=== PATIENT | female | born 1995 | race Caucasian/White ===

== ENCOUNTER 2018-09-10 11:08 | Emergency (ER) | payer OTHER ==
[~2018-09-10] VITALS: Ht 162.6 cm; Wt 68.0 kg
[2018-09-10] MEDS ORDERED: PREDNISONE 20 M20 M1 PO (11:33)
[2018-09-10 11:39] VITALS: BP 119/85
== END 2018-09-10 11:39 | disposition home or self-care (01) ==
LOC: M.ERS 11:08
DX: L30.9 Dermatitis, unspecified (principal); F32.9 Major depressive disorder, single episode, unspecified; F41.9 Anxiety disorder, unspecified; J45.909 Unspecified asthma, uncomplicated; Z88.1 Allergy status to other antibiotic agents; Z88.5 Allergy status to narcotic agent

== ENCOUNTER 2019-06-26 14:24 | Emergency (ER) | payer OTHER, MEDICAID ==
[~2019-06-26] VITALS: Ht 162.6 cm; Wt 65.8 kg
[~2019-06-26 14:24] MED LIST: PREDNISONE 20 M20 M1 PO
[2019-06-26] MEDS ORDERED: TRINATE TABLET1 EACH PO (15:09)
[2019-06-26 15:18] VITALS: BP 130/75
== END 2019-06-26 15:19 | disposition home or self-care (01) ==
LOC: M.ERS 14:24
DX: Z32.01 Encounter for pregnancy test, result positive (principal); F32.9 Major depressive disorder, single episode, unspecified; J45.909 Unspecified asthma, uncomplicated; F41.9 Anxiety disorder, unspecified; Z88.1 Allergy status to other antibiotic agents; Z88.5 Allergy status to narcotic agent

== ENCOUNTER 2020-05-25 20:55 | Emergency (ER) | payer OTHER, MEDICAID ==
[~2020-05-25] VITALS: Ht 162.6 cm; Wt 65.8 kg
[~2020-05-25 20:55] MED LIST changes: +TRINATE TABLET1 EACH PO
[2020-05-25] MEDS ORDERED: ZOLOFT100 MG PO (21:13)
[2020-05-25] MEDS ORDERED: HYDROCODON-ACE1 EAC8 PO (21:35)
[2020-05-25] MEDS ORDERED: AMOXICILLIN875 MG PO (21:35)
[2020-05-25 21:46] VITALS: BP 111/74
== END 2020-05-25 21:47 | disposition home or self-care (01) ==
LOC: M.ERS 20:55
DX: K02.9 Dental caries, unspecified (principal); J45.909 Unspecified asthma, uncomplicated; F32.9 Major depressive disorder, single episode, unspecified; F41.9 Anxiety disorder, unspecified; Z98.890 Other specified postprocedural states; Z88.1 Allergy status to other antibiotic agents; Z88.6 Allergy status to analgesic agent

== ENCOUNTER 2020-07-13 15:58 | Emergency (ER) | payer OTHER, MEDICAID ==
[~2020-07-13] VITALS: Ht 162.6 cm; Wt 63.5 kg
[~2020-07-13 15:58] MED LIST changes: +AMOXICILLIN875 MG PO; +HYDROCODON-ACE1 EAC8 PO; +ZOLOFT100 MG PO
[2020-07-13] MEDS ORDERED: AMOXICILLIN 50500 MG PO (16:42)
[2020-07-13 16:47] VITALS: BP 126/68
== END 2020-07-13 16:48 | disposition home or self-care (01) ==
LOC: M.ERS 15:58
DX: K08.89 Other specified disorders of teeth and supporting structures (principal); J45.909 Unspecified asthma, uncomplicated; Z88.1 Allergy status to other antibiotic agents; Z88.5 Allergy status to narcotic agent

== ENCOUNTER 2020-08-30 15:24 | Emergency (ER) | payer OTHER, MEDICAID ==
[~2020-08-30] VITALS: Ht 162.6 cm; Wt 65.8 kg
[~2020-08-30 15:24] MED LIST changes: +AMOXICILLIN 50500 MG PO
[2020-08-30 16:42] VITALS: BP 121/85
== END 2020-08-30 16:43 | disposition home or self-care (01) ==
LOC: M.ERS 15:24
DX: R09.81 Nasal congestion (principal); Z20.828 Contact with and (suspected) exposure to other viral communicable diseases; J45.909 Unspecified asthma, uncomplicated; Z88.5 Allergy status to narcotic agent; Z88.1 Allergy status to other antibiotic agents

== ENCOUNTER 2020-09-09 15:32 | Emergency (ER) | payer OTHER, MEDICAID ==
[~2020-09-09] VITALS: Ht 160 cm; Wt 72.1 kg
[2020-09-09 16:23] VITALS: BP 129/90
== END 2020-09-09 16:24 | disposition home or self-care (01) ==
LOC: M.ERS 15:32
DX: Z20.828 Contact with and (suspected) exposure to other viral communicable diseases (principal); J45.909 Unspecified asthma, uncomplicated; F17.210 Nicotine dependence, cigarettes, uncomplicated; Z88.1 Allergy status to other antibiotic agents; Z88.6 Allergy status to analgesic agent

== ENCOUNTER 2020-11-25 20:47 | Emergency (ER) | payer OTHER, MEDICAID ==
[~2020-11-25] VITALS: Ht 162.6 cm; Wt 65.8 kg
[2020-11-25] MEDS ORDERED: NORCO5 PO (21:07)
[2020-11-25] MEDS ORDERED: PENICILLIN V P500 MG PO (21:07)
[2020-11-25] MEDS ORDERED: IBUPROFEN 600600 M1 PO (21:07)
[2020-11-25] MEDS ORDERED: PERIDEX15 ML SWISH&SPIT (21:07)
[2020-11-25 21:13] VITALS: BP 175/103
== END 2020-11-25 21:14 | disposition home or self-care (01) ==
LOC: M.ERS 20:47
DX: K02.9 Dental caries, unspecified (principal); J45.909 Unspecified asthma, uncomplicated; F17.210 Nicotine dependence, cigarettes, uncomplicated; Z88.1 Allergy status to other antibiotic agents; Z88.5 Allergy status to narcotic agent

== ENCOUNTER 2021-08-16 21:09 | Emergency (ER) | payer OTHER, MEDICAID ==
[~2021-08-16] VITALS: Ht 162.6 cm; Wt 86.2 kg
[~2021-08-16 21:09] MED LIST changes: +IBUPROFEN 600600 M1 PO; +NORCO5 PO; +PENICILLIN V P500 MG PO; +PERIDEX15 ML SWISH&SPIT
[2021-08-16] MEDS ORDERED: TRAMADOL 50 MG50 MG PO (21:33)
[2021-08-16] MEDS ORDERED: LIDOCAINE VISC100 ML SWISH&SPIT (21:33)
[2021-08-16] MEDS ORDERED: AMOXIL 875 MG875 M1 PO (21:33)
[2021-08-16 21:55] VITALS: BP 138/92
== END 2021-08-16 21:56 | disposition home or self-care (01) ==
LOC: M.ERS 21:09
DX: K08.89 Other specified disorders of teeth and supporting structures (principal); J45.909 Unspecified asthma, uncomplicated; F32.9 Major depressive disorder, single episode, unspecified; F41.9 Anxiety disorder, unspecified; F17.210 Nicotine dependence, cigarettes, uncomplicated; Z88.1 Allergy status to other antibiotic agents; Z88.5 Allergy status to narcotic agent